=== PATIENT | male | born 1960 | race Caucasian/White ===

== ENCOUNTER → 2016-12-18 | Day surgery (SDC) | payer OTHER ==
[2016-12-18 12:48] LABS: HCT 46.4 % (42.0-52.0); HGB 16.1 g/dl (13.2-18.0); MCH 34.1 pg (25.0-31.0); MCHC 34.7 g/dL (32.0-36.0); MCV 98.3 fL (78.0-100.0); MPV 8.9 fL (6.0-9.5); RBC 4.72 M/uL (4.70-6.00); RDW 12.4 % (11.5-14.0); WBC 8.8 K/uL (4.0-10.5)
[2016-12-18 13:06] LABS: ALBUMIN 4.6 g/dL (3.5-5.0); BILIRUBIN - TOTAL 0.7 mg/dL (0.1-1.0); CREATININE 0.9 mg/dL (0.7-1.2); GLOBULIN (CALCULATION) 3.7 g/dL (2.2-4.2); TOTAL PROTEIN 8.3 g/dL (6.4-8.3)
[2016-12-18 13:11] LABS: POTASSIUM 5.7 mmol/L (3.5-5.1)
== END | disposition home or self-care (01) ==
LOC: FAS 11:57
PROVIDERS: Surgery
DX: Z12.11 Encounter for screening for malignant neoplasm of colon (principal); K21.9 Gastro-esophageal reflux disease without esophagitis; I10 Essential (primary) hypertension; M19.90 Unspecified osteoarthritis, unspecified site; F17.210 Nicotine dependence, cigarettes, uncomplicated; Z98.52 Vasectomy status; Z83.42 Family history of familial hypercholesterolemia; Z83.3 Family history of diabetes mellitus; Z82.5 Family history of asthma and other chronic lower respiratory diseases; Z79.899 Other long term (current) drug therapy
CPT/HCPCS: 36415; 80053; J2704